=== PATIENT | female | born 2000 | race Caucasian/White ===

== ENCOUNTER → 2022-01-04 | Outpatient (CLI) | payer OTHER | LOC: LAB 15:36 | PROVIDERS: ATTEND Obstetrics & Gynecology | DX: N93.9 Abnormal uterine and vaginal bleeding, unspecified (principal) | CPT/HCPCS: 36415; 84702 ==

== ENCOUNTER → 2022-01-06 | Outpatient (CLI) | payer OTHER ==
--- NOTE | 2022-01-06 17:45 | RAD ---
US OB <14 WKS +TV History: Vaginal bleeding. . Comparison: Pelvic ultrasound 12/26/2021 Technique: Sonographic examination of the pelvis was performed with transabdominal and transvaginal t echnique. Findings: Uterus- Uterine parenchyma: Homogeneous without fibroids. Uterine measurements: 7.7 x 3.7 x 4.4 cm Endometrium: No endometrial gestation is identified. 1.0 cm thickness. No mass or abnormal blood flow . Cervix: There are 2 cystic foci within the cervix which measure 5.1 x 4.2 x 3.1 mm and 6.0 x 3.0 x 3. 0 mm. These appear similar to nabothian cysts however have a somewhat echogenic wall, and in the sett ing of positive test gestational sac is not excluded. These would both measure 5 weeks 1 da y gestational age by mean sac diameter. No pole is identified in either Adnexa- Right Ovary: Identified and appears normal. Size: 3.9 x 1.8 x 2.7 cm Doppler: Normal. Left Ovary: Obscured by bowel gas Other: No abnormal adnexal masses. No abnormal free fluid in the pelvis. Impression: 1. No endometrial gestation identified. 2. There are 2 small cystic foci in the region of the cervix which likely represent nabothian cysts however there is a slightly echogenic wall and in the setting of positive test cannot exclu de gestational sacs. These would represent ectopic cervical . Both measure mean sac diameter of 5 weeks 1 day. A pole is not identified. Recommend clinical follow-up with trending beta hC G and repeat ultrasound in 7-14 days. Electronically signed by: Low Rondon MD (01/06/2022 5:42 PM) [id number]
== END ==
LOC: US 10:59
PROVIDERS: ATTEND Obstetrics & Gynecology
DX: O00.91 Unspecified ectopic pregnancy with intrauterine pregnancy (principal); Z3A.00 Weeks of gestation of pregnancy not specified
CPT/HCPCS: 76801; 76817

== ENCOUNTER → 2022-01-13 | Outpatient (CLI) | payer OTHER | LOC: LAB 11:47 | PROVIDERS: ATTEND Obstetrics & Gynecology | DX: Z33.1 Pregnant state, incidental (principal) | CPT/HCPCS: 36415; 84702 ==